=== PATIENT | male | born 1990 | race Caucasian/White ===

== ENCOUNTER 2016-11-09 15:48 | Emergency (ER) | payer OTHER ==
[~2016-11-09] VITALS: Ht 180.3 cm; Wt 77.1 kg
[~2016-11-09 15:48] MED LIST: NORCO 325-5 MG1 TAB PO; XARELTO10 MG PO
[2016-11-09] MEDS ORDERED: MOBIC15 MG PO (18:06)
== END 2016-11-09 18:50 | disposition short-term general hospital (02) ==
LOC: ER 15:48
DX: M51.26 Other intervertebral disc displacement, lumbar region (principal); Z79.899 Other long term (current) drug therapy; F17.210 Nicotine dependence, cigarettes, uncomplicated
CPT/HCPCS: J1885